=== PATIENT | male | born 1960 | race Caucasian/White ===

== ENCOUNTER 2018-03-10 06:57 | Emergency (ER) | payer OTHER ==
[2018-03-10] MEDS: CLINDAMYCIN HCL 150 MG CAPSULE. PO (07:28)
[2018-03-10] MEDS: IBUPROFEN 800 MG TABLET. PO (07:28)
== END 2018-03-10 07:34 | disposition home or self-care (01) ==
LOC: ER 06:57
DX: K04.7 Periapical abscess without sinus (principal); K05.10 Chronic gingivitis, plaque induced; F41.9 Anxiety disorder, unspecified; J44.9 Chronic obstructive pulmonary disease, unspecified
CPT/HCPCS: 99283